=== PATIENT | male | born 1940 | race Caucasian/White ===

== ENCOUNTER 2018-09-22 12:46 | Emergency (ER) | payer OTHER, MEDICARE ==
[2018-09-22] MEDS ORDERED: ALBUTEROL 2.5 MG/3 ML NEB SOL ONE (14:13)
[2018-09-22] MEDS ORDERED: predniSONE 20 MG TAB ONE (15:20)
[2018-09-22] MEDS ORDERED: IPRATROPIUM BROM 0.5MG/2.5ML ONE (15:34)
--- NOTE | 2018-09-22 15:40 | RAD REPORT ---
EXAM DESCRIPTION: Lisa Tobin (2 Views)09/22/2018 2:51 pm CLINICAL HISTORY: Cough COMPARISON: 2015 FINDINGS: The lungs appear clear of acute infiltrate. The heart is normal size
--- NOTE | 2018-09-22 16:07 | EDPHYS ---
Physician Documentation [facility] Name: Roc Burnett Age: 77 yrs Sex: Male : 1940 Arrival Date: 09/22/2018 Time: 12:48 Bed 25 Private MD: Jose De Jesus Carter V ED Physician David Thompson HPI: 09/22 14:15 This 77 yrs old Male presents to ER via Ambulatory with complaints of Cough. pm1 14:15 The patient or guardian reports cough. pm1 14:15 Onset: The symptoms/episode began/occurred 3 day(s) ago. Severity of symptoms: in the pm1 emergency department the symptoms are actually worse. Modifying factors: The symptoms are alleviated by nothing, the symptoms are aggravated by nothing. Associated signs and symptoms: Pertinent positives: chest pain, with cough, sore throat, shortness of breath, Pertinent negatives: diarrhea, fever, nausea. The patient has not recently seen a physician, the patient's primary care provider is Dr. Carter. Patient with onset of sinus congestion and post nasal drainage leading to sore throat 3 days ago. Sinus congestion and sore throat have resolved but now he has a cough with chest congestion. Has right sided chest pain with coughing. Historical: - Allergies: 12:53 Lactated Ringers; aa5 - PMHx: 12:54 Diabetes - NIDDM; Hypothyroidism; Pneumonia; Hypertension; aa5 - PSHx: 12:54 khadra knee; aa5 - Immunization history:: Pneumococcal vaccine status is unknown, Flu vaccine is up to date. - Social history:: Smoking status: Patient/guardian denies using tobacco. - Ebola Screening: : No symptoms or risks identified at this time. ROS: 14:15 Constitutional: Negative for fever, chills, and weight loss, Eyes: Negative for injury, pm1 pain, redness, and discharge, ENT: Negative for injury, pain, and discharge, Neck: Negative for injury, pain, and swelling. 14:15 Abdomen/GI: Negative for abdominal pain, nausea, vomiting, diarrhea, and constipation, Back: Negative for injury and pain, : Negative for injury, bleeding, discharge, and swelling, MS/Extremity: Negative for injury and deformity, Skin: Negative for injury, rash, and discoloration, Neuro: Negative for headache, weakness, numbness, tingling, and seizure. 14:15 Cardiovascular: Positive for chest pain, with cough, Negative for edema, orthopnea, palpitations. 14:15 Respiratory: Positive for cough, shortness of breath, wheezing. Exam: 14:15 Constitutional: This is a well developed, well nourished patient who is awake, alert, pm1 and in no acute distress. Head/Face: Normocephalic, atraumatic. Eyes: Pupils equal round and reactive to light, extra-ocular motions intact. Lids and lashes normal. Conjunctiva and sclera are non-icteric and not injected. Cornea within normal limits. Periorbital areas with no swelling, redness, or edema. ENT: Nares patent. No nasal discharge, no septal abnormalities noted. Tympanic membranes are normal and external auditory canals are clear. Oropharynx with no redness, swelling, or masses, exudates, or evidence of obstruction, uvula midline. Mucous membranes moist. Neck: Trachea midline, no thyromegaly or masses palpated, and no cervical lymphadenopathy. Supple, full range of motion without nuchal rigidity, or vertebral point tenderness. No Meningismus. Chest/axilla: Normal chest wall appearance and motion. Nontender with no deformity. No lesions are appreciated. Cardiovascular: Regular rate and rhythm with a normal S1 and S2. No gallops, murmurs, or rubs. Normal PMI, no JVD. No pulse deficits. 14:15 Abdomen/GI: Soft, non-tender, with normal bowel sounds. No distension or tympany. No guarding or rebound. No evidence of tenderness throughout. Back: No spinal tenderness. No costovertebral tenderness. Full range of motion. Skin: Warm, dry with normal turgor. Normal color with no rashes, no lesions, and no evidence of cellulitis. MS/ Extremity: Pulses equal, no cyanosis. Neurovascular intact. Full, normal range of motion. 14:15 Respiratory: the patient does not display signs of respiratory distress, Respirations: normal, Breath sounds: wheezing: expiratory is heard diffusely. 14:15 Neuro: Orientation: is normal, Motor: is normal, moves all fours. Vital Signs: 12:52 BP 162 / 61; Pulse 63; Resp 20 S; Temp 98.7(O); Pulse Ox 92% on R/A; Weight 122.47 kg aa5 (R); Height 5 ft. 10 in. (177.80 cm) (R); Pain 7/10; 14:00 BP 154 / 60; Pulse 66; Resp 24; Pulse Ox 96% on R/A; tl3 15:00 BP 150 / 64; Pulse 60; Resp 18; Pulse Ox 98% on R/A; tl3 16:00 BP 154 / 55; Pulse 68; Resp 18; Pulse Ox 98% ; tl3 12:52 Body Mass Index 38.74 (122.47 kg, 177.80 cm) aa5 MDM: 13:03 Patient medically screened. priscila 16:00 Medication response: albuterol nebulizer treatment(s) relieved the patient's symptoms. pm1 The patient is no longer wheezing, Atrovent and prednisone relieved patient's wheezing and shortness of breath. 16:05 Data reviewed: vital signs. Data interpreted: Pulse oximetry: on room air is 96 %. pm1 Interpretation: normal. Counseling: I had a detailed discussion with the patient and/or guardian regarding: the historical points, exam findings, and any diagnostic results supporting the discharge/admit diagnosis, lab results, radiology results, the need for outpatient follow up, to return to the emergency department if symptoms worsen or persist or if there are any questions or concerns that arise at home. 09/22 13:18 Order name: Chest Pa And Lat (2 Views) XRAY pm1 09/22 13:58 Order name: Group A Streptococcus Rapid Sc; Complete Time: 14:16 EDMD 09/22 14:08 Order name: Influenza Screen (A ; Complete Time: 14:16 EDMD 09/22 15:51 Order name: Throat Culture EDMD 09/22 15:41 Order name: RAD; Complete Time: 16:00 EDMS Administered Medications: 14:03 Drug: Albuterol 5 mg Route: Inhalation; tl3 14:30 Follow up: Response: Marked relief of symptoms tl3 15:12 Drug: predniSONE 40 mg Route: PO; mg2 15:46 Follow up: Response: No adverse reaction tl3 15:30 Drug: AtroVENT Aerosol 0.5 mg Route: Inhalation; tl3 15:30 Drug: Albuterol 2.5 mg Route: Inhalation; tl3 Disposition: 09/22/18 16:06 Discharged to Home. Impression: Bronchitis, not specified as acute or chronic. - Condition is Stable. - Discharge Instructions: Acute Bronchitis, Adult, How to Use an Inhaler, Viral Respiratory Infection, [id number]. - Prescriptions for Albuterol Sulfate 90 mcg/actuation - inhale 1-2 puff by INHALATION route every 4-6 hours; 1 Inhaler. Guaifenesin AC 10- 100 mg/5 mL Oral Liquid - take 10 milliliter by ORAL route every 4 hours As needed; 240 milliliter. Prednisone 20 mg Oral Tablet - take 2 tablet by ORAL route once daily for 5 days; 10 tablet. - Medication Reconciliation Form, Thank You Letter, Antibiotic Education, Prescription Opioid Use form. - Follow up: Emergency Department; When: As needed; Reason: Worsening of condition. Follow up: Jose De Jesus Cartre MD; When: 2 - 3 days; Reason: Recheck today's complaints, Continuance of care, Re-evaluation by your physician. - Problem is new. - Symptoms have improved. Addendum: 09/24/2018 07:48 Co-signature as Attending Physician, David Thompson MD I agree with the assessment and c scott plan of care. Signatures: Dispatcher [employer] EDDavid Fuentes MD MD cha Calderon, Audri, RN RN aa5 Jamison Reddy NP HEEL SE[employer] RUBBER pm1 Clau Kraus RN RN tl3 Hernesto Valdez RN RN mg2 Corrections: (The following items were deleted from the chart) 09/22 17:16 16:06 09/22/2018 16:06 Discharged to Home. Impression: Bronchitis, not specified as tl3 acute or chronic. Condition is Stable. Forms are Medication Reconciliation Form, Thank You Letter, Antibiotic Education, Prescription Opioid Use. Follow up: Emergency Department; When: As needed; Reason: Worsening of condition. Follow up: Jose De Jesus Carter; When: 2 - 3 days; Reason: Recheck today's complaints, Continuance of care, Re-evaluation by your physician. Problem is new. Symptoms have improved. pm1
--- NOTE | 2018-09-22 16:07 | ER ---
Nurse's Notes [facility] Name: Roc Burnett Age: 77 yrs Sex: Male : 1940 Arrival Date: 09/22/2018 Time: 12:48 Bed 25 Private MD: Jose De Jesus Carter V Diagnosis: Bronchitis, not specified as acute or chronic Presentation: 09/22 12:51 Presenting complaint: Patient states: cough, chest congestion, and runny nose that aa5 began 2-3 days ago. Pt states "the right side of my chest feels like pressure and just congested". Transition of care: patient was not received from another setting of care. Onset of symptoms was September 2018. Risk Assessment: Do you want to hurt yourself or someone else? Patient reports no desire to harm self or others. Care prior to arrival: None. 12:51 Method Of Arrival: Ambulatory aa5 12:51 Acuity: MINERVA 3 aa5 17:15 Initial Sepsis Screen: Does the patient meet any 2 criteria? No. Patient's initial tl3 sepsis screen is negative. Does the patient have a suspected source of infection? No. Patient's initial sepsis screen is negative. Historical: - Allergies: 12:53 Lactated Ringers; aa5 - PMHx: 12:54 Diabetes - NIDDM; Hypothyroidism; Pneumonia; Hypertension; aa5 - PSHx: 12:54 khadra knee; aa5 - Immunization history:: Pneumococcal vaccine status is unknown, Flu vaccine is up to date. - Social history:: Smoking status: Patient/guardian denies using tobacco. - Ebola Screening: : No symptoms or risks identified at this time. Screenin:00 Abuse screen: Denies threats or abuse. Nutritional screening: No deficits noted. tl3 Tuberculosis screening: No symptoms or risk factors identified. Fall Risk None identified. Assessment: 14:00 General: Appears uncomfortable, well groomed, well developed, well nourished, Behavior tl3 is calm, cooperative, appropriate for age. Pain: Complains of pain in chest Pain does not radiate. Pain began last night started wheezing. Neuro: Level of Consciousness is awake, alert, obeys commands, Oriented to person, place, time, situation, Appropriate for age. Cardiovascular: Heart tones S1 S2 present Patient's skin is warm and dry. Respiratory: Airway is patent Respiratory effort is even, labored, with nasal flaring, Respiratory pattern is regular, Breath sounds are diminished bilaterally. in right middle lobe, right lower lobe, right posterior middle lobe and right posterior lower lobe Breath sounds with wheezes bilaterally. GI: No signs and/or symptoms were reported involving the gastrointestinal system. : No signs and/or symptoms were reported regarding the genitourinary system. EENT: No signs and/or symptoms were reported regarding the EENT system. 15:00 Reassessment: Patient appears in no apparent distress at this time. No changes from tl3 previously documented assessment. Patient and/or family updated on plan of care and expected duration. Pain level reassessed. Patient is alert, oriented x 3, equal unlabored respirations, skin warm/dry/pink. Vital Signs: 12:52 BP 162 / 61; Pulse 63; Resp 20 S; Temp 98.7(O); Pulse Ox 92% on R/A; Weight 122.47 kg aa5 (R); Height 5 ft. 10 in. (177.80 cm) (R); Pain 7/10; 14:00 BP 154 / 60; Pulse 66; Resp 24; Pulse Ox 96% on R/A; tl3 15:00 BP 150 / 64; Pulse 60; Resp 18; Pulse Ox 98% on R/A; tl3 16:00 BP 154 / 55; Pulse 68; Resp 18; Pulse Ox 98% ; tl3 12:52 Body Mass Index 38.74 (122.47 kg, 177.80 cm) aa5 ED Course: 12:48 Patient arrived in ED. rg4 12:49 Jose De Jesus Carter MD is Private Physician. rg4 12:51 Arm band placed on. aa5 12:52 Triage completed. aa5 13:02 Jamison Reddy NP is PHCP. pm1 13:02 David Thompson MD is Attending Physician. pm1 13:25 Bed in low position. Call light in reach. Side rails up X 1. jp3 13:35 Flu and/or RSV swab sent to lab. Strep swab sent to lab. jp3 13:58 Clau Kraus, JUAN M is Primary Nurse. tl3 14:00 Pulse ox on. NIBP on. tl3 14:00 No provider procedures requiring assistance completed. tl3 15:22 Strep Sent. mg2 15:22 Flu Sent. mg2 15:22 Chest Pa And Lat (2 Views) XRAY Sent. mg2 16:00 Patient did not have IV access during this emergency room visit. Patient maintains SpO2 tl3 saturation greater than 95% on room air. 16:06 Jose De Jesus Carter MD is Referral Physician. pm1 Administered Medications: 14:03 Drug: Albuterol 5 mg Route: Inhalation; tl3 14:30 Follow up: Response: Marked relief of symptoms tl3 15:12 Drug: predniSONE 40 mg Route: PO; mg2 15:46 Follow up: Response: No adverse reaction tl3 15:30 Drug: AtroVENT Aerosol 0.5 mg Route: Inhalation; tl3 15:30 Drug: Albuterol 2.5 mg Route: Inhalation; tl3 Outcome: 16:00 Discharged to home ambulatory. tl3 16:00 Condition: stable 16:00 Discharge instructions given to patient, family, Instructed on discharge instructions, follow up and referral plans. medication usage, Demonstrated understanding of instructions, follow-up care, medications, Prescriptions given X 3. 16:06 Discharge ordered by . pm1 17:16 Patient left the ED. tl3 Signatures: Nora Madison, RN RN aa5 Jamison Reddy, [employer] DO[employer] pm1 Vanessa Hackett rg4 Clau Kraus RN RN tl3 Hernesto Valdez RN RN mg2 Nitin Abarca 3
== END 2018-09-22 17:16 | disposition home or self-care (01) ==
LOC: ER 12:46
DX: J40 Bronchitis, not specified as acute or chronic (principal)
CPT/HCPCS: 71046; 87070; 87081; 87804; J7512